=== PATIENT | male | born 1995 | race African-American/Black ===

== ENCOUNTER 2018-07-13 18:15 | Emergency (ER) | payer BC ==
[~2018-07-13] VITALS: Ht 170.2 cm; Wt 68.5 kg
[2018-07-13 19:19] VITALS: BP 158/88; Ht 170.2 cm; Wt 68.5 kg
== END 2018-07-13 20:44 | disposition left against medical advice (07) ==
LOC: ED 18:15
DX: Z53.21 Procedure and treatment not carried out due to patient leaving prior to being seen by health care provider (principal)